=== PATIENT | female | born 1980 | race Caucasian/White ===

== ENCOUNTER → 2017-01-06 | Outpatient (CLI) | payer OTHER ==
[2016-09-27 11:00] VITALS: BP 108/57
[~2017-01-06] MED LIST: CETI10TA22 PO; CHOL2000 PO; FLUT1DIS3 IH; HYDR4TAB13 PO; POLY17PO5 PO; PROAIR HFA8.5 GM INH
--- NOTE | 2017-01-06 15:57 | KCIC ---
DEXA scan Indication: Disorder of bone density. Bone mineral analysis of the lumbar spine and left hip was performed. The bone mineral density of the lumbar spine L1-L4 is 0.906 with a T-score of -1.3. The bone mineral density of the left hip is 0.745 with a T-score of -1.6. Impression: Osteopenia of the lumbar spine and left hip. Electronically signed by: Hardy Avina MD (Jan 06, 2017 15:56:00)
== END | disposition home or self-care (01) ==
LOC: KCIC DEXA 14:15
PROVIDERS: ATTEND Orthopaedic Surgery
DX: M89.9 Disorder of bone, unspecified (principal); S82.892A Other fracture of left lower leg, initial encounter for closed fracture; M85.88 Other specified disorders of bone density and structure, other site
CPT/HCPCS: 77080